=== PATIENT | female | born 1995 | race Caucasian/White ===

== ENCOUNTER 2016-09-17 05:38 | Day surgery (SDC) | payer OTHER ==
[2016-09-17] VITALS (8 sets, daily range): BP systolic 117–147; BP diastolic 64–85; PULSE 68–105; RESP 12–19; O2SAT 94–99
[~2016-09-17] VITALS: Ht 160 cm; Wt 68.1 kg
[~2016-09-17 05:38] MED LIST: IBUP200C PO; NORG1TAB29 PO
[2016-09-17] MEDS ORDERED: fentaNYL-PF 50 mCg/mL 2 mL Inj ONE (05:39)
[2016-09-17] MEDS ORDERED: MetoCLOpramide 5 mg/mL 2 mL Inj ONE (05:39)
[2016-09-17] MEDS ORDERED: Ondansetron 2 mg/mL 2 mL Inj ONE (05:39)
[2016-09-17] MEDS ORDERED: Propofol 10,000 mCg/mL 20 mL Inj ONE (05:39)
[2016-09-17] MEDS ORDERED: Dexamethasone 4 mg/mL Inj ONE (05:39)
[2016-09-17] MEDS ORDERED: CeFAZolin Inj 2 GM in IV Premix 1 EACH IV ONE (06:00)
[2016-09-17] MEDS ORDERED: Lactated Ringer's 1,000 ML IV ONE (06:07)
--- NOTE | 2016-09-17 08:06 | PCM.HPANE ---
Patient Data Date of Service: September 17, 2016 (0715) Surgeon Admitting Provider: Attending Provider:Jorge Paniagua MD Primary Care Physician:Ventura Reeves DO Other Provider:Kee Olmos Anesthesia Reason for Visit Right Bankart Lesion Ht/WT & BMI Height (Feet): 5 Height (Inches): 3.00 Weight (Kilograms): 68.130 Body Mass Index 26.00 Allergies Coded Allergies: No Known Allergies (Unverified , 09/12/16) Past Anesthesia History Anesthesia History: Denies:: Fam Anesthesia Reaction, Fam Malignant Hypertherm Diabetes History Hx Diabetes?: No MRSA MRSA: No Medications Home Meds Incl Beta Neil: No Reported Medications Norgestimate-Ethinyl Estradiol (Mononessa)1 Each Tablet1 Each PO DAILY 09/12/16 Ibuprofen 200 Mg [id number] Mg PO QID PRN For Pain Ref 0 09/12/16 History History of ENT Problems?: No HEENT History: Denies:: Abnormal Airway Cataracts Difficult Intubation Dysphagia Glaucoma Hearing Problem Sinus Problem TMJ Denture Type: None Teeth Condition: Within Normal Limits Hx of Heart Problems?: No Cardiovascular History: Denies:: AICD Abdominal Aortic Aneurism Atrial Fibrillation Cardiac Surgery Chest Pain Congestive Heart Failure Coronary Artery Disease Edema Heart Murmur Hypertension Irregular Heartbeat Pacemaker Peripheral Vascular Rheumatic Fever Thrombophlebitis Valvular Heart Disease Hx of Respiratory Problem?: No Respiratory History: Denies:: Asthma COPD Chest Surgery Cough Dyspnea Emphysema Hemoptysis Oxygen Administration Pneumonia Pulmonary Embolism Tuberculosis Use of C-PAP Machine Use of Inhalers / NEBS Hx Neurologic Problems?: No Neurological History: Denies:: Alzheimer's Disease CVA Dementia Dizziness Headaches Multiple Sclerosis Parkinson's Disease Peripheral Neuropathy Seizures TIA Hx of GI Problems?: No Gastrointestinal History: Denies:: Cirrhosis Diverticulitis Gall Bladder Disease Gastroesphageal Reflux Gastrointestinal Bleeding Heartburn Hepatitis Hiatal Hernia Liver Disease Rectal Bleeding Hx of Problems?: No Genitourinary History: Denies:: HX of Hemodialysis Kidney Stones Urinary Tract Infection Female Hx: Denies:: Currently (neg urine) Endometriosis Pelvic Inflammatory Problems with Breasts? Skin History: Denies:: History Skin Disorders? Pressure Ulcers Hx Musculoskeletal Problems?: Yes Musculoskeletal History: Positive for:: Musculoskeletal Trauma (HX MULT RT SHOULDER DISLOCATIONS RT BANKART LESION=CURRENT PROBLEM) Denies:: Back Injury Degenerative Joint Fibromyalgia Joint Replacement Myasthenia Gravis Osteoarthritis Rheumatoid Arthritis Systemic Lupus Hx of Psycho/Social Problems?: No Psycho Social History: Denies:: Anxiety Bipolar Disorder Hx Depression Suicide Attempt Hx Surgeries?: No Hx Any Other Health Problems?: No Hx Diabetes: No Hx Alcohol Use: Yes (OCCAS)Have You Smoked inLast 12 mo: No Stop/Bang S-Snoring: Do You Snore Loudly: No T-Tired: feel tired, fatigued: No O-Obsered: Observed not breath: No P-Blood Pressure: treated: No B- Body Mass Index > 35 kg/m2: No A- Age over 50: No N- Neck Large Circumference: No G- Gender Male: No DANIKA Total Score: 0 Risk Assessment Category Category 1A: Patient has history of documented sleep apnea, and HAS NOT received any narcotic, sedative or anesthesia administration during this stay. Category 1B: Patient has history of documented sleep apnea, and HAS received any narcotic , sedative or anesthesia administration during this stay Category 2: Patient has SUSPECTED Obstructive Sleep Apnea, and HAS received any narcotic , sedative or anesthesia administration during this stay. Category 3: Patient has SUSPECTED Obstructive Sleep Apnea and HAS NOT received narcotic, sedative or anesthesia administration during this stay. Category 4: Outpatient in Procedural Areas with known sleep apnea or who screen positive for High Risk via the STOP/BANG questionnaire. Exam Exam Vital Signs Vital Signs Date Time Temp Pulse Resp B/P Pulse Ox O2 Delivery O2 Flow Rate FiO2 09/17/16 06:08 36.3 68 17 117/65 99 Room Air General Appearance: Alert, Oriented X3, Cooperative, No Acute Distress HEENT/AIRWAY: MP 1 Lungs: Clear to Auscultation Heart: Exam Unremarkable Meds/Labs/Diagnostics Admission Meds Current Medications Lactated Ringer's (Lr) 1,000 ml @ ud STK-MED ONCE IV Last administered on t 06:07; Start 09/17/16 at 06:07; Stop 09/17/16 at 06:08; Status DC Plan Impression Patient chart reviewed, patient interviewed and anesthestic plan with risks, benefits, and alternatives discussed, and informed consent obtained. ASA Physical Status: ASA1 Normal Healthy Anesthetic Plan: GA, Regional Block (ISB) Bene/Risks/Altern/Consents: Yes HP Complete Prior to Induction: Yes Volodymyr Kirby MD September 17, 2016 08:06
[2016-09-17] MEDS ORDERED: Lactated Ringer's 500 ML IV PRN (08:12)
[2016-09-17] MEDS ORDERED: Lactated Ringer's 1,000 ML IV SCH (08:12)
[2016-09-17] MEDS ORDERED: HYDROmorphone 1 mg/mL Inj IVPUSH PRN (08:15)
[2016-09-17] MEDS ORDERED: fentaNYL-PF 50 mCg/mL 2 mL Inj IVPUSH PRN (08:15)
[2016-09-17] MEDS ORDERED: Dexamethasone 4 mg/mL Inj IVPUSH PRN (08:15)
[2016-09-17] MEDS ORDERED: EPHEDrine Sulfate 50 mg/mL Inj IVPUSH PRN (08:15)
[2016-09-17] MEDS ORDERED: Phenylephrine 10,000 mCg/mL Inj IVPUSH PRN (08:15)
[2016-09-17] MEDS ORDERED: Ondansetron 2 mg/mL 2 mL Inj IVPUSH PRN (08:15)
[2016-09-17] MEDS ORDERED: MetoCLOpramide 5 mg/mL 2 mL Inj IVPUSH PRN (08:15)
[2016-09-17] MEDS ORDERED: HYDROcodone-APAP 5-325 mg Tablet PO PRN (09:40)
[2016-09-17] MEDS ORDERED: Ketorolac 15 mg/mL Inj IVPUSH ONE (09:40)
--- NOTE | 2016-09-17 09:48 | PCM.ORTHOP ---
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 Without the qualified virtual customer assistant being present, it would have extended the operative procedure and made the procedure technically more difficult to perform. 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 X-rays show the glenohumeral joint to be well maintained. The risks, benefits, and alternatives of surgery were discussed with the patient. The risks included but were not limited to infection, bleeding, damage to vessels and nerves, loss of motion, continued pain, complications due to anesthesia including myocardial infarction , stroke, , etc. The patient stated understanding of the nature of the surgical procedure and gave written and verbal consent to proceed. PROCEDURE: The patient was brought into the operating room and placed supine on the operating room table. A interscalene block was placed in the right shoulder for postoperative pain management, followed by the administration of general anesthesia. Preoperative antibiotics was given The patient was then placed into the lateral decubitus position with the right side up. An axillary role was placed and the legs were padded as necessary to avoid pressure points. The patient was maintained in position with a beanbag evacuation device. A thorough examination of the right shoulder under anesthesia was performed. The patient had [default value] degrees of forward elevation and [default value ] degrees of abduction. In 90 degrees of abduction the patient had [default value]degrees of external rotation and [default value] degrees of internal rotation. The right shoulder was then examined for stability. In neutral rotation there was 4/5 anterior instability. The right upper extremity was then prepped and draped in the usual fashion. The arm was suspended with a well -padded sleeve with eight pounds of balanced suspension in the arthroscopic position. A standard posterior portal was made inferior and medial to the posterior corner of the acromion. The incision was made only through skin. The trocar was advanced through the soft tissue with a blunt-tipped obturator. This was inserted into the glenohumeral joint without difficulty. The arthroscope was placed through the cannula and attached to the video monitor system. Inflow was achieved using the arthroscopic pump. The pressure was maintained at 35-40 mm of mercury throughout the entire procedure. Once the arthroscope confirmed visualization within the shoulder joint, it was advanced anteriorly into the rotator interval beneath the biceps tendon. A Wissinger octavio was then used to create the anterior portal from inside-out. A second anterior stab wound incision was made only through skin and an anterior cannula was placed. 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 Without the use of a qualified medical assistant cardiology, this surgical procedure would have taken even considerably longer and been unable to be performed arthroscopically Anterior labral bankart repair, no remplissage: Attention was then directly toward anterior labral repair. An anterior mid-glenoid portal was established with an outside in technique just above the subscapularis. With the arthroscope in the anterior superior viewing portal there was evidence of significant tearing of the anterior inferior labrum, Bankart lesion. Using a Liberator elevator and a blunt tipped egegik bar, a full thickness capsulolabral elevation was carried out down to the 6 o'clock position. The fibers of the subscapularis were well seen. The medial neck of the glenoid was well maintained and lightly abraded using the motorized shaver. The articular cartilage margin along with the anterior glenoid rim was lightly debrided using a curette. The first suturetak anchor was placed in the 5:00 position using the curved valve inserter for the sutureTak anchor. The anchor was deployed and seated with excellent secure fixation. The sutures from this anchor were then passed beginning with the 1st stitch at the 5:30 position and advancing the tissue from inferior to superior and from medial to lateral. This was a full thickness labral bite which restored an excellent buttress inferiorly. After the 1st labral stitch was secured, the humeral head was well centralized on the glenoid. The 2nd stitch from the anterior inferior most anchor was passed taking a plication bite as well as a full thickness labral bite creating a hospital corner repair with excellent secure fixation. 2 additional anchors for a total of 3 were placed at more proximally with excellent fixation purchase. The remaining sutures were similarly passed, placing full thickness labral bites as well as capsular advancement, advancing the anterior inferior capsule and labrum from inferior to superior and medial to lateral. There appeared to be excellent congregational of the anterior labral bumper. The drive- through sign was eliminated. The humeral head appeared to be well centralized, visualizing from both anterior superior and the posterior cannula. There was excellent congregational of the bumper and no further evidence for instability. Closure: The arm was then taken out of traction. The instability both in neutral rotation and in abduction external rotation was eliminated. The humeral head was well centralized. The arthroscope was then used to visualize the repair both from the anterior superior viewing portal and the posterior viewing portal which showed the humeral head to be well balanced with excellent and appropriate tissue tension. The glenohumeral joint was then copiously irrigated with an additional liter of lactated Ringers solution and excess fluid was drained. The arthroscopic portals were closed with #4-0 Nylon and Steri-Strips. A dry sterile dressing was applied, followed by a neutral rotation sling. The patient was awakened in the Operating Room and transported to the Recovery Room in satisfactory condition. He appeared to tolerate the procedure well. There were no complications noted. Nonweightbearing to affected upper extremity. Please leave sling on at all times. You may remove sling 3 times a day to move the elbow wrist and fingers. Do not move your shoulder. Please keep the affected extremity elevated when possible. You may use ice and/or heat as needed for comfort. Follow-up in 2 weeks with me with for suture removal and Steri-Strip application. Follow-up with me at 6 weeks with progression of physical therapy as per my protocol (please ask me for protocol if needed). Follow-up with me before full release at 3 months postop. Grafts, Implants: Implants-See Implant Record Complications There were no periprocedural complications identified. Condition Stable Anesthetic Administered: GA Catheters: None Output, Estimated Blood Loss: 5 Blood Admin during surgery: No Surgical Cast or Splint: Shoulder Immobilizer Surgical Specimen Removed: No Specimen sent to Pathology: No copies to: Jorge Paniagua MD, Christopher L MD September 17, 2016 09:48
[2016-09-17] MEDS: Lactated Ringer's 1,000 ML IV SCH ×2 (09:53→11:20)
--- NOTE | 2016-09-17 10:29 | PCM.ANEP1 ---
Post Anesthesia Phase 1 PACU Phase 1 Assessment Date of Service: September 17, 2016 (0715) Vital Signs Vital Signs Date Time Temp Pulse Resp B/P Pulse Ox O2 Delivery O2 Flow Rate FiO2 09/17/16 10:00 88 16 144/83 97 Room Air 09/17/16 09:56 36.6 89 16 135/71 96 Room Air 09/17/16 09:52 95 12 147/71 97 Room Air 09/17/16 09:45 95 15 146/69 94 Room Air 09/17/16 09:40 87 15 141/64 96 Room Air 09/17/16 09:35 99 18 135/74 96 Room Air 09/17/16 09:28 36 105 19 121/85 96 Room Air 09/17/16 06:08 36.3 68 17 117/65 99 Room Air Anesthetic Administered: GA, Regional Block Level of Alertness: Sleepy, easy to arouse JENKINS's with Equal Strength: Yes Pain: Yes Nausea or Vomiting: No Oxygen Delivery: Room Air Lungs: Clear to Auscultation Dermatome Level: Full Sensation Complications: No Volodymyr Kirby MD September 17, 2016 10:29
== END 2016-09-17 23:59 | disposition home or self-care (01) ==
LOC: SAS 05:38
PROVIDERS: ATTEND Orthopaedic Surgery
DX: S43.491A Other sprain of right shoulder joint, initial encounter (principal); M25.311 Other instability, right shoulder; X58.XXXA Exposure to other specified factors, initial encounter; Y93.67 Activity, basketball; Y92.9 Unspecified place or not applicable; Y99.8 Other external cause status
CPT/HCPCS: 29806; 76942; C1713; J0690; J1100; J1885; J2250; J2405; J2765; J3010; J7120